=== PATIENT | male | born 1925 | race Caucasian/White ===

== ENCOUNTER 2016-07-02 14:36 | Emergency (ER) | payer MEDICARE, OTHER ==
[~2016-07-02] VITALS: Ht 154.9 cm; Wt 81.8 kg
[~2016-07-02 14:36] MED LIST: ALLOPURINOL100 MG PO; ANTACID500 M1 PO; ANUSOL-HC SUPPO25 MG RC; ASPIR-LOW81 MG PO; ASPIRIN E.C. 8181 MG PO; ATORVASTATIN; FISH OIL CONC1000 MG PO; FLOMAX 0.40.4 MG/CAP PO; LIPITOR10 MG PO; LISINOPRIL10 MG PO; LISINOPRIL5 MG PO; LOVAZA1 GM PO; LUPRON5 MG/M1 SC; OMEGA-31000 MG PO; PRILOSEC 20MG20 MG PO; PRILOSEC40 MG PO; PROLIA60 MG/ML IJ; RECLAST5 MG/1001 IV; TUMS 5001250 MG PO; VITAMIN D; ZYLOPRIM 100MG100 MG PO
[2016-07-02 14:45] VITALS: TEMP 97.5
[2016-07-02] MEDS ORDERED: LINZESS145CAP PO (15:17)
[2016-07-02] MEDS ORDERED: ULTRAM 50MG TAB50 MG PO (17:03)
[2016-07-02 18:12] VITALS: BP 157/93; PULSE 69
== END 2016-07-02 18:15 | disposition home or self-care (01) ==
LOC: COL.ER 14:36
DX: S06.9X9A Unspecified intracranial injury with loss of consciousness of unspecified duration, initial encounter (principal); S00.11XA Contusion of right eyelid and periocular area, initial encounter; R40.2362 Coma scale, best motor response, obeys commands, at arrival to emergency department; R40.2142 Coma scale, eyes open, spontaneous, at arrival to emergency department; R40.2252 Coma scale, best verbal response, oriented, at arrival to emergency department; W01.198A Fall on same level from slipping, tripping and stumbling with subsequent striking against other object, initial encounter; Y92.414 Local residential or business street as the place of occurrence of the external cause
CPT/HCPCS: J3010

== ENCOUNTER 2016-07-23 12:01 | Emergency (ER) | payer MEDICARE, OTHER ==
[~2016-07-23] VITALS: Ht 177.8 cm; Wt 77.3 kg
[2016-07-23 12:01] VITALS: TEMP 97.4
[~2016-07-23 12:01] MED LIST changes: +LINZESS145CAP PO; +ULTRAM 50MG TAB50 MG PO
[2016-07-23 13:40] LABS: BASO % 0.2 % (0.0-2.0); EOS % 0.2 % (0-4.0); GRAN # 8.1 (1.4-6.5); GRAN % 80.5 % (42.2-75.2); HEMATOCRIT 36.1 % (42.0-52.0); HEMOGLOBIN 12.9 g/dl (13.5-18.0); LYMPH % 9.6 % (20.0-51.0); MEAN CELL VOLUME 101 fl (80.0-100.0); MEAN CORPUSCULAR HEMOGLOBIN 36 pg (27.0-31.0); MEAN CORPUSCULAR HGB CONC 36 g/dl (33.0-37.0); MEAN PLATELET VOLUME 8.7 fl (7.4-10.4); MONO # 0.9 (0.1-0.6); PLATELET COUNT 195 K/mm3 (130-400); RED BLOOD COUNT 3.59 M/mm3 (4.20-5.60); REDCELL DISTRIBUTION WIDTH-CV 12.5 % (11.5-14.5); WHITE BLOOD COUNT 10.1 K/mm3 (4.8-10.8)
[2016-07-23 13:45] LABS: PROTHROMBIN TIME 11.6 SECONDS (9.7-12.8)
[2016-07-23 13:48] LABS: ADJUSTED CALCIUM 9.4 mg/dL (8.4-10.2); ALBUMIN 4.1 gm/dL (3.5-5.0); BILIRUBIN,TOTAL 1.5 mg/dL (0.0-1.0); CALCIUM 9.5 mg/dL (8.4-10.2); CREATININE, serum 0.71 mg/dL (0.66-1.25); PARTIAL THROMBOPLASTIN TIME 35.3 SECONDS (26.0-37.0); POTASSIUM 3.7 mmol/L (3.4-5.0); TOTAL PROTEIN 7.2 gm/dL (6.4-8.2)
[2016-07-23 13:59] LABS: TROPONIN-I 0.012 ng/mL (0.000-0.034)
[2016-07-23 14:46] VITALS: BP 180/96; PULSE 86
== END 2016-07-23 14:45 | disposition short-term general hospital (02) ==
LOC: COL.ER 12:01
PROVIDERS: Family Medicine
DX: S02.0XXA Fracture of vault of skull, initial encounter for closed fracture (principal); S06.2X0A Diffuse traumatic brain injury without loss of consciousness, initial encounter; W19.XXXA Unspecified fall, initial encounter
CPT/HCPCS: J1170; J7030; J7050